=== PATIENT | female | born 2005 | race American Indian/Alaskan Native ===

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

== ENCOUNTER 2023-07-11 18:46 | Emergency (ER) | payer OTHER, MEDICAID ==
[2023-07-11 18:52] LABS: BASOPHILS PERCENT AUTO 0.3 % (0.0-1.0); EOSINOPHILS PERCENT AUTO 0.8 % (1.0-3.0); HEMATOCRIT 34.3 % (37.0-47.0); HEMOGLOBIN 11.3 g/dL (12.0-16.0); LYMPHOCYTES PERCENT AUTO 15.1 % (20.5-50.1); MEAN CORPUSCULAR HGB CONC 32.9 g/dL (33.0-35.0); MEAN CORPUSCULAR VOLUME 82.1 fL (80-100); MONOCYTES PERCENT AUTO 12.4 % (2-8); NEUTROPHILS PERCENT AUTO 71.4 % (42.2-75.2); PLATELET COUNT,PLT 333 10^3/uL (150-450); RED BLOOD CELL COUNT 4.18 10^6/uL (4.2-5.4)
[2023-07-11 19:14] LABS: ALANINE AMINOTRANSFERASE,ALT 66 U/L (14-59); ALKALINE PHOSPHATASE 119 U/L (46-116); ANION GAP 19.5 mEq/L (7-13); ASPARTATE AMNIOTRANSFERASE,AST 37 U/L (15-37); BILIRUBIN TOTAL 0.2 mg/dL (0.2-1.0); BLOOD UREA NITROGEN,BUN 7 mg/dL (7-18); BUN/CREATININE RATIO 9.3 (No establ ref range); CALCIUM 8.7 mg/dL (8.5-10.1); CARBON DIOXIDE,CO2 22 mmol/L (21-32); CHLORIDE,CL 104 mmol/L (98-107); CREATININE 0.75 mg/dL (0.55-1.02); EST CRCL DRUG DOSING (CG) 85.94 mL/min; GLUCOSE RANDOM 104 mg/dL (70-99); POTASSIUM,K 3.5 mmol/L (3.5-5.1); PROTEIN TOTAL,TP 6.6 g/dL (6.4-8.2); SODIUM,NA 142 mmol/L (136-145)
[2023-07-11] MEDS ORDERED: Lactated Ringers 1,000 ML IV ONE ×2 (19:17→19:48)
[2023-07-11 19:20] LABS: A/G RATIO 0.83; ESTIMATED GFR 117 mL/min (>=60); ETHANOL BLOOD MEDICAL < 3 mg/dL (0)
[2023-07-11 19:24] LABS: HCG QUALITATIVE,SERUM NEGATIVE (NEGATIVE)
[2023-07-11] MEDS ORDERED: Orphenadrine 60 MG/2 ML Inj IV ONE (19:49)
[2023-07-11] MEDS ORDERED: Iopamidol 755 Mg/ML 100 ML Bottle IVPUSH ONE (19:58)
[2023-07-11 20:03] LABS: APPEARANCE,URINE CLEAR (CLEAR); BILIRUBIN,URINE NEGATIVE (NEGATIVE); COLOR,URINE YELLOW (YELLOW); GLUCOSE,URINE NEGATIVE (NEGATIVE); KETONES,URINE NEGATIVE (NEGATIVE); LEUKOCYTE ESTERASE,URINE SMALL (NEGATIVE); NITRITE,URINE POSITIVE (NEGATIVE); OCCULT BLOOD,URINE TRACE-INTACT (NEGATIVE); PROTEIN,URINE NEGATIVE (NEGATIVE); UROBILINOGEN,URINE 0.2 mg/dL (0.2-1.0)
[2023-07-11 20:06] LABS: AMPHETAMINES,URINE NEGATIVE (NEGATIVE); BARBITURATES,URINE NEGATIVE (NEGATIVE); BENZODIAZEPINE,URINE NEGATIVE (NEGATIVE); MDMA (ECSTASY), URINE NEGATIVE (NEGATIVE); METHADONE,URINE NEGATIVE (NEGATIVE); METHAMPHETAMINES,URINE POSITIVE (NEGATIVE); OPIATES,URINE NEGATIVE (NEGATIVE); OXYCODONE,URINE NEGATIVE (NEGATIVE); PHENCYCLIDINE,URINE NEGATIVE (NEGATIVE); TCA,URINE NEGATIVE (NEGATIVE)
[2023-07-11] MEDS ORDERED: Levofloxacin/Dextrose 5%-Water 500 MG in Premix Bag 1 BAG IV ONE (20:19)
[2023-07-11 20:21] LABS: BACTERIA,URINE MANY /HPF (0-FEW/HPF); EPITHELIAL CELLS,URINE MODERATE /HPF (NOT SEEN); MUCUS,URINE MODERATE /LPF (NOT SEEN); RBC,URINE 0-5 /HPF (0-5)
[2023-07-11] MEDS ORDERED: Azithromycin 250 MG Tab PO ONE (20:25)
[2023-07-11] MEDS ORDERED: cefTRIAXone 1 GM Vial IVPUSH ONE (20:26)
[2023-07-11] MEDS ORDERED: Erythromycin Base 0.5% Ophth Oint 3.5 GM Tube EYELF ONE (20:47)
== END 2023-07-11 22:01 | disposition home or self-care (01) ==
LOC: DL.ED 18:46
DX: S06.0X1A Concussion with loss of consciousness of 30 minutes or less, initial encounter (principal); S33.5XXA Sprain of ligaments of lumbar spine, initial encounter; S80.01XA Contusion of right knee, initial encounter; S00.03XA Contusion of scalp, initial encounter; M62.830 Muscle spasm of back; N34.2 Other urethritis; N30.90 Cystitis, unspecified without hematuria; Z88.0 Allergy status to penicillin; V89.2XXA Person injured in unspecified motor-vehicle accident, traffic, initial encounter
CPT/HCPCS: 36415; 70450; 71260; 72125; 72132; 73562; 73610; 74177; 80053; 80305; 80307; 81001; 83605; 84703; 85025; 85730; 86850; 86900; 86901; 87086; 87088; 87186; 96374; 96375; 99285; Q9967; 99284

== ENCOUNTER 2024-03-25 22:56 | Inpatient (IN) | payer MEDICAID ==
[2024-03-26] MEDS ORDERED: Sodium Chloride 0.9% 10 ML Syringe FLUSH PRN (00:11)
[2024-03-26] MEDS: Lactated Ringers 1,000 ML IV ONE (00:20)
[2024-03-26 00:41] LABS: APPEARANCE,URINE CLEAR (CLEAR); BILIRUBIN,URINE NEGATIVE (NEGATIVE); COLOR,URINE YELLOW (YELLOW); GLUCOSE,URINE NEGATIVE (NEGATIVE); KETONES,URINE NEGATIVE (NEGATIVE); LEUKOCYTE ESTERASE,URINE NEGATIVE (NEGATIVE); NITRITE,URINE NEGATIVE (NEGATIVE); OCCULT BLOOD,URINE NEGATIVE (NEGATIVE); PROTEIN,URINE NEGATIVE (NEGATIVE); UROBILINOGEN,URINE 0.2 mg/dL (0.2-1.0)
[2024-03-26 00:45] LABS: AMPHETAMINES,URINE NEGATIVE (NEGATIVE); BARBITURATES,URINE NEGATIVE (NEGATIVE); BENZODIAZEPINE,URINE NEGATIVE (NEGATIVE); MDMA (ECSTASY), URINE NEGATIVE (NEGATIVE); METHADONE,URINE NEGATIVE (NEGATIVE); METHAMPHETAMINES,URINE NEGATIVE (NEGATIVE); OPIATES,URINE NEGATIVE (NEGATIVE); OXYCODONE,URINE NEGATIVE (NEGATIVE); PHENCYCLIDINE,URINE NEGATIVE (NEGATIVE); TCA,URINE NEGATIVE (NEGATIVE)
[2024-03-26 00:55] LABS: BACTERIA,URINE FEW /HPF (0-FEW/HPF); EPITHELIAL CELLS,URINE FEW /HPF (NOT SEEN); RBC,URINE 0-5 /HPF (0-5); WBC,URINE 0-5 /HPF (0-5/HPF)
[2024-03-26] MEDS ORDERED: Naloxone 2 MG/2 ML Syringe IVPUSH PRN (02:39)
[2024-03-26] MEDS ORDERED: diphenhydrAMINE 50 MG/ML SDV IVPUSH PRN (02:39)
[2024-03-26] MEDS ORDERED: ePHEDrine 50 MG/ML SDV IVPUSH PRN (02:39)
[2024-03-26] MEDS: Lactated Ringers 1,000 ML IV SCH (02:40)
[2024-03-26 02:55] LABS: HEMATOCRIT 35.5 % (37.0-47.0); HEMOGLOBIN 11.5 g/dL (12.0-16.0); MEAN CORPUSCULAR HEMOGLOBIN 28.3 pg (27.0-34.0); MEAN CORPUSCULAR HGB CONC 32.4 g/dL (33.0-35.0); MEAN CORPUSCULAR VOLUME 87.4 fL (80-100); RED BLOOD CELL COUNT 4.06 10^6/uL (4.2-5.4); WHITE BLOOD CELL COUNT,WBC 9.6 10^3/uL (5.0-10.0)
[2024-03-26] MEDS ORDERED: Oxytocin 10 Units/1 ML SDV ONE (03:01)
[2024-03-26] MEDS ORDERED: Ondansetron 4 MG/2 ML SDV ONE (03:02)
[2024-03-26] MEDS ORDERED: Dexamethasone 4 MG/ML SDV ONE (03:02)
[2024-03-26] MEDS ORDERED: Succinylcholine 200 MG/10 ML MDV ONE (03:02)
[2024-03-26] MEDS ORDERED: ceFAZolin 2 GM Vial ONE (03:03)
[2024-03-26] MEDS: Oxytocin/Normal Saline 30 UNIT/500 ML BAG IV SCH (03:54)
[2024-03-26] MEDS: Misoprostol 400 MCG (4 X 100 MCG TAB) RECTAL PRN (05:32)
[2024-03-26] MEDS: Tranexamic Acid 1,000 MG in Sodium Chloride 0.9% 100 ML IV PRN (05:38)
[2024-03-26] MEDS: Ketorolac 30 MG/ML SDV IVPUSH SCH ×2 (05:41→09:48)
[2024-03-26] MEDS: ceFAZolin 2 GM Vial IVPUSH ONE (06:28)
[2024-03-26] MEDS: Methylergonovine 0.2 MG/1 ML Amp IM PRN (06:35)
[2024-03-26] MEDS: Carboprost Tromethamine 250 MCG/1 ML Amp IM PRN (07:00)
[2024-03-26] MEDS: Prenatal Multivitamin with Calcium/Folic Acid/Iron Tab PO SCH (08:44)
[2024-03-26] MEDS: Simethicone 80 MG Tab.Chew PO SCH (08:44)
[2024-03-26] MEDS: Loperamide 2 MG Cap PO PRN (08:44)
[2024-03-26] MEDS: cefTRIAXone 1 GM Vial IVPUSH ONE (08:45)
[2024-03-26] MEDS: Misoprostol 100 MCG Tab PO ONE (09:47)
[2024-03-26] MEDS: Ondansetron 4 MG/2 ML SDV IVPUSH PRN (09:56)
[2024-03-26 13:58] LABS: HEMATOCRIT 34.1 % (37.0-47.0); HEMOGLOBIN 11.4 g/dL (12.0-16.0); MEAN CORPUSCULAR HEMOGLOBIN 28.6 pg (27.0-34.0); MEAN CORPUSCULAR HGB CONC 33.4 g/dL (33.0-35.0); MEAN CORPUSCULAR VOLUME 85.7 fL (80-100); RED BLOOD CELL COUNT 3.98 10^6/uL (4.2-5.4); WHITE BLOOD CELL COUNT,WBC 15.6 10^3/uL (5.0-10.0)
[2024-03-26] MEDS: Ibuprofen 800 MG Tab PO PRN (23:48)
[2024-03-27 06:43] LABS: HEMOGLOBIN 10.2 g/dL (12.0-16.0); MEAN CORPUSCULAR HEMOGLOBIN 28.2 pg (27.0-34.0); MEAN CORPUSCULAR HGB CONC 31.9 g/dL (33.0-35.0); MEAN CORPUSCULAR VOLUME 88.4 fL (80-100); RED BLOOD CELL COUNT 3.62 10^6/uL (4.2-5.4); WHITE BLOOD CELL COUNT,WBC 9.1 10^3/uL (5.0-10.0)
[2024-03-27] MEDS: Measles, Mumps & Rubella Vaccine 0.5 ML SDV SUBCUT ONE (13:01)
[2024-03-27] MEDS: Acetaminophen 325 MG Tab PO PRN (15:22)
[2024-03-27] MEDS: Acetaminophen/oxyCODONE 325-5 MG Tab PO PRN (22:28)
[2024-03-28] MEDS: Acetaminophen/oxyCODONE 325-5 MG Tab PO PRN (04:15)
[2024-03-28] MEDS: Docusate Sodium 100 MG Cap PO PRN (09:37)
== END 2024-03-28 11:50 | disposition home or self-care (01) | DRG 787 ==
LOC: DL.OBCHECK 22:56 → DL.OB 03-26 02:31 → OBSVTOIN 03-26 03:30
PROVIDERS: ADMIT Family Medicine; ATTEND Family Medicine
PROC: 3E0P7VZ Introduction of Hormone into Female Reproductive, Via Natural or Artificial Opening (ICD-10-PCS; 2024-03-26)
PROC: 10D07Z8 Extraction of Products of Conception, Other, Via Natural or Artificial Opening (ICD-10-PCS; 2024-03-26)
PROC: 10D00Z1 Extraction of Products of Conception, Low, Open Approach (ICD-10-PCS; principal; 2024-03-26 03:00)
DX: O34.211 Maternal care for low transverse scar from previous cesarean delivery (principal); O72.1 Other immediate postpartum hemorrhage; Z37.0 Single live birth; Z3A.37 37 weeks gestation of pregnancy; O99.824 Streptococcus B carrier state complicating childbirth; O13.5 Gestational [pregnancy-induced] hypertension without significant proteinuria, complicating the puerperium
CPT/HCPCS: 36415; 51702; 76815; 80305-QW; 81001; 84112; 85027; 86850; 86900; 86901; 86920; 86922; 90471; 90707; A9270-GY; J0330; J0696; J1885; J2210; J2405; J2590; J3490; J7120